=== PATIENT | male | born 1990 | race Caucasian/White ===

== ENCOUNTER 2024-10-12 17:57 | Emergency (ER) | payer OTHER, SELFPAY ==
--- NOTE | ~2024-10-12 | XR_ITS ---
CLINICAL HISTORY: cp Chest Radiographs, AP Comparison: None Findings: No cardiomegaly. Normal mediastinal contours. No pneumothorax. No opacity. No pleural effusion. Normal upper abdomen. No acute fracture. Impression: No acute findings. This document has been electronically signed by: Gracy Lilly MD on 10/12/2024 19:48:03
--- NOTE | 2024-10-12 18:05 | PC.NURSE ---
Pt. changed over into hospital attire and belongings secured per security officers. During changeover, a bottle of liquid Phenazolam was found and confiscated by security.
[2024-10-12 18:06] VITALS: BMI 21.0
[2024-10-12 18:08] VITALS: BP 134/78; PULSE 98; O2SAT 98
--- NOTE | 2024-10-12 18:20 | PC.NURSE ---
Pt.'s behaviors escalating, becoming increasingly aggressive and combative towards staff. Per Isela Newsome MD, order for 4-point restraints and IM medications ordered
[2024-10-12 18:24] VITALS: BP 97/56; PULSE 84; RESP 14; O2SAT 95
[2024-10-12] MEDS: LORazepam 2 MG/ML VIAL IM (18:24)
[2024-10-12] MEDS: diphenhydrAMINE HCL 50 MG/ML VIAL IM (18:24)
[2024-10-12] MEDS: Haloperidol Lactate 5 MG/ML VIAL IM (18:24)
--- NOTE | 2024-10-12 18:24 | PC.NURSE ---
Pt. on cardiac exercise specialist at this time
--- NOTE | 2024-10-12 18:32 | ECG_ITS ---
Test Reason : CHEST PAIN Blood Pressure : / mmHG Vent. Rate : 084 BPM Atrial Rate : 084 BPM P-R Int : 186 ms QRS Dur : 096 ms QT Int : 366 ms P-R-T Axes : 066 074 061 degrees QTc Int : 432 ms Normal sinus rhythm RSR' or QR pattern in V1 suggests right ventricular conduction delay Anterior infarct , age undetermined Abnormal ECG No previous ECGs available Referred By: Yoon Newsome Electronically Signed By:SARAH DAILY MD
--- NOTE | 2024-10-12 18:36 | ED.PSYCH ---
HPI - Psych General Chief Complaint: Psychiatric Symptoms Stated Complaint: INGESTED UNK SUBSTANCE, AMS, PD ON BOARD Time Seen by Provider: 10/12/24 18:14 History of Present Illness HPI Narrative: Patient is a 34-year-old male was found in a pizza parlor completely altered. Not acting himself. Might have taken some benzo. Patient unable to answer specific question staring into space trying to get a scan done not answering questions. Related Data Allergies Allergy/AdvReac Type Severity Reaction Status Date / Time No Known Allergies Allergy Verified 10/12/24 18:47 Review of Systems Review of Systems: Unable to obtain review of systems [facility] Past Medical History Attestation statement: The following information was validated with the patient. Social History Social History Advance Directives: No Advance Directives Information Provided: No Do you have a plan to hurt others: No Plan Physical Exam Vital Signs: Vital Signs: Last Vital Signs Temp 98.3 F 10/12/24 23:49 Pulse 67 10/12/24 23:49 Resp 14 10/12/24 23:49 BP 99/63 10/12/24 23:49 Pulse Ox 99 10/12/24 23:49 O2 Del Method Room Air 10/12/24 23:49 BMI result Body Mass Index 21.0 Appearance: Alert. Unable to respond to question Eyes: Pupils equal, round and reactive to light. ENT: Pharynx normal. Neck: Normal inspection. Neck supple. No lymph nodes noted. No crepitus CVS: Normal heart rate and rhythm. Pulses normal. Normal S1 and S2 Respiratory: No respiratory distress. Breath sounds normal. No Wheezing. No rales Abdomen: Soft and nontender. No rigidity. No distention. good BS x4 Skin: Skin warm and dry. Normal skin color. Normal skin turgor. Extremities: No lower extremity edema. Neurovascular intact to all extremities. No Lacerations. No Rash Neuro: Awake standing agitated No motor deficit. No sensory deficit. Moving all extermities. No verbal response Medications Administered Discontinued Medications Generic Name Dose Route Start Last Admin Trade Name Freq PRN Reason Stop Dose Admin Diphenhydramine HCl 50 mg 10/12/24 18:17 10/12/24 18:24 Diphenhydramine Hcl 50 Mg/Ml Vial IM 10/12/24 18:18 50 mg ONCE ONE Administration Haloperidol Lactate 5 mg 10/12/24 18:17 10/12/24 18:24 Haloperidol Lactate 5 Mg/Ml Vial IM 10/12/24 18:18 5 mg ONCE ONE Administration Sodium Chloride 1,000 mls @ 999 mls/hr 10/12/24 18:45 10/12/24 21:00 Ns IV 10/12/24 19:45 Infused .Q1H1M GERDA Infusion Lorazepam 2 mg 10/12/24 18:17 10/12/24 18:24 Lorazepam 2 Mg/Ml Vial IM 10/12/24 18:18 2 mg ONCE ONE Administration Medical Decision Making Medical Decision Making [facility] Narrative: Patient extremely agitated initially. Not following commands. We have to give him 5 of Haldol to Ativan 50 of Benadryl. Patient's family stated patient had use liquid benzo. Question horse tranquilizer. Patient was restrained initially. We quickly take the restraints off when patient became sleeping and more cooperative. Patient was monitored in the emergency department. Nursing staff spoke with family. Patient took a horse tranquilizer. In no distress. My interpretation of his EKG showed a sinus rhythm heart rate is 80 ND QRS QTC normal no acute ST segment elevation. Patient was removed from the restrained immediately after he became more calm and relaxed. Monitored overnight. Patient now becoming more awake alert at 01:00. Will discharge in morning if the progress continues. In no distress Differential Diagnosis Differential Diagnoses: The differential diagnosis associated with the presentation includes Polysubstance abuse Admission/Observation Consideration of admission/observation: Escalation of care including admission/observation considered Lab Data [facility] Lab Attestation statement: I reviewed the patient's lab results. 10/12/24 18:44 10/12/24 18:44 Labs: Lab Results 10/12/24 Range/Units 18:44 WBC 5.1 (4.8-10.8) X10*3/uL RBC 4.37 L (4.60-5.80) X10*6/uL Hgb 12.5 L (14.0-18.0) g/dl Hct 36.0 L (42.0-52.0) % MCV 82.4 (80.0-98.0) fL MCH 28.6 (27.0-33.0) pg MCHC 34.7 (31.0-36.0) g/dl RDW 12.8 (11.0-16.0) % Plt Count 184 (160-400) X10*3/uL MPV 9.9 (9.4-12.4) fL Immature Gran % (Auto) 0.2 (0.0-0.4) % Neut % (Auto) 75.1 H (45-73) % Lymph % (Auto) 18.0 L (20-40) % Petroleum % (Auto) 5.7 (2-11) % Eos % (Auto) 0.6 (0-4) % Baso % (Auto) 0.4 (0-2) % Lymph # (Auto) 0.9 L (1.2-4.9) X10*3/uL Petroleum # (Auto) 0.3 (0.1-1.2) X10*3/uL Eos # (Auto) 0.0 (0.0-0.4) X10*3/uL Baso # (Auto) 0.0 (0.0-0.2) X10*3/uL Abs Immat Gran (auto) 0.01 (0.00-0.03) X10*3/uL Absolute Neuts (auto) 3.8 (2.0-8.3) x10*3/uL Absolute Nucleated RBC 0.000 (0.0-0.012) X10*3/uL Nucleated RBC % (auto) 0.0 (0.0-0.2) /100WBC Sodium 146 H (135-145) mmol/L Potassium 3.2 L (3.3-5.1) mmol/L Chloride 110 H (96-108) mmol/L Carbon Dioxide 25 (22-29) mmol/L Anion Gap 14 (12-20) BUN 21 H (9-16) mg/dL Creatinine 0.85 (0.5-1.4) mg/dL Estim Creat Clear Calc 126.2 Estimated GFR > 60 Random Glucose 97 (60-115) mg/dL Calcium 9.4 (8.4-10.2) mg/dL Total Bilirubin 0.6 (0.0-1.0) mg/dL Direct Bilirubin 0.3 (0.0-0.5) mg/dL AST 45 H (5-37) U/L ALT 17 (0-40) U/L Alkaline Phosphatase 59 (39-117) U/L Troponin I High Sens < 2.7 (<3.5-35.0) ng/L Total Protein 7.9 (6.5-8.0) g/dL Albumin 5.0 (3.5-5.0) g/dL Salicylates < 5.0 L (15-30) mg/dL Acetaminophen < 3 (<30) mcg/mL Ethyl Alcohol < 10 mg/dL Independent Historian Clinical information obtained from an independent historian. History obtained from or confirmed by: EMS Discharge Plan Discharge Clinical Impression: Polysubstance abuse Patient Disposition: Still a Patient Instructions: Polysubstance Abuse (ED) Referrals: [facility] [Provider Group] - 10/15/24 Print Language: Moldovan
[2024-10-12 18:39] VITALS: BP 101/54; PULSE 86; RESP 12; O2SAT 93
--- NOTE | 2024-10-12 18:49 | PC.NURSE ---
Report given to Peter Frias RN
[2024-10-12 18:51] LABS: MANUAL DIFF FLAG NO
[2024-10-12 18:52] LABS: Basophils Percent Auto 0.4 % (0-2); Eosinophils Percent Auto 0.6 % (0-4); Hemoglobin 12.5 g/dl (14.0-18.0); Imm Gran Abs Auto 0.01 X10*3/uL (0.00-0.03); Imm Gran Pct Auto 0.2 % (0.0-0.4); Lymphocytes Absolute Auto 0.9 X10*3/uL (1.2-4.9); Mean Corpuscular HGB Conc 34.7 g/dl (31.0-36.0); Mean Corpuscular Hemoglobin 28.6 pg (27.0-33.0); Mean Corpuscular Volume 82.4 fL (80.0-98.0); Mean Platelet Volume 9.9 fL (9.4-12.4); Monocytes Absolute Auto 0.3 X10*3/uL (0.1-1.2); Monocytes Percent Auto 5.7 % (2-11); Neutrophils Absolute Auto 3.8 x10*3/uL (2.0-8.3); Neutrophils Percent Auto 75.1 % (45-73); Platelet Count 184 X10*3/uL (160-400); Red Blood Count 4.37 X10*6/uL (4.60-5.80); Red Cell Distribution Width 12.8 % (11.0-16.0); White Blood Count 5.1 X10*3/uL (4.8-10.8)
[2024-10-12 18:54] VITALS: BP 90/54; PULSE 77; RESP 12; O2SAT 94
[2024-10-12 19:08] LABS: Alanine Aminotransferase 17 U/L (0-40); Alkaline Phosphatase 59 U/L (39-117); Anion Gap 14 (12-20); Aspartate Amino Transferase 45 U/L (5-37); Bilirubin Direct 0.3 mg/dL (0.0-0.5); Bilirubin Total 0.6 mg/dL (0.0-1.0); Blood Urea Nitrogen 21 mg/dL (9-16); Calcium 9.4 mg/dL (8.4-10.2); Carbon Dioxide 25 mmol/L (22-29); Chloride 110 mmol/L (96-108); Creatinine Clr Calc Pharmacy 126.2; Estimated Glomerular Filt Rate > 60; Glucose Random 97 mg/dL (60-115); Potassium 3.2 mmol/L (3.3-5.1); Sodium 146 mmol/L (135-145); Total Protein 7.9 g/dL (6.5-8.0)
[2024-10-12 19:10] LABS: Acetaminophen LAB < 3 mcg/mL (<30); Ethanol < 10 mg/dL; Salicylate < 5.0 mg/dL (15-30)
[2024-10-12 19:17] LABS: Troponin-I High Sensitivity < 2.7 ng/L (<3.5-35.0)
[2024-10-12] MEDS: 0.9 % Sodium Chloride 1,000 ML 999 ML IV (19:30)
--- NOTE | 2024-10-12 20:30 | PC.NURSE ---
assumed care of pt 1914, pt at this time in 2 point restraints with BUE, restraints removed and skin/cms checked, pt awoke for short time, verbalized agreement for iv, calm/cooperative during placement approx 1929. ivf hung per dec. approx 1999 pts mother called to state she was concerned about pt being discharged before monday am and plan is to have him section 35 on Monday, requested message be relayed to , Newsome aware. 2023 pt requests for restraints to come off d/t being uncomfortable and wanting to lay on his side. verbalizes understanding behavioral criteria for release. restraints removed and pt laying comfortably in stretcher. 1:1 sitter at bedside. resp even and unlabored nad.
[2024-10-12 23:15] VITALS: BP 92/53; PULSE 68; RESP 16; O2SAT 97
[2024-10-12 23:49] VITALS: BP 99/63; PULSE 67; RESP 14; TEMP 36.8; O2SAT 99
--- NOTE | 2024-10-13 00:26 | PC.NURSE ---
pt awake, sat up in bed, requesting to leave but appears very sleepy still. redirected back into bed. pt requested curtain be closed a little more to block out light to see. curtain closed some but remains visible to nurses stations
--- NOTE | 2024-10-13 00:59 | PC.NURSE ---
pt sitting up on edge of bed, requesting something to drink water provided and placed on bedside table. pt now back in bed
[2024-10-13 02:19] VITALS: BP 96/56; PULSE 56; RESP 16; TEMP 36.5; O2SAT 96
[2024-10-13 03:53] VITALS: BP 92/54; PULSE 62; RESP 16; TEMP 36.6; O2SAT 96
--- NOTE | 2024-10-13 05:35 | PC.NURSE ---
pt awake and out of bed, appears more stead on his feet at this time. requesting to go home. pt redirected back into bed, sandwich and juice provided
[2024-10-13 06:14] VITALS: BP 109/79; PULSE 88; RESP 16; TEMP 37.2; O2SAT 97
[2024-10-13 08:54] LABS: Appearance Urine Clear; Color Urine Yellow; Glucose Urine UA Negative (Negative); Leukocyte Esterase Urine Negative (Negative); Nitrite Urine Negative (Negative); Specific Gravity - Urine 1.015 (1.005-1.025); Urine Blood Negative (Negative); Urine Ketones Trace mg/dL (Negative); Urine Protein Negative (Neg-Trace)
--- NOTE | 2024-10-13 08:57 | PC.NURSE ---
this RN resumed care of pt at 0645. pt alert and oriented to self only. pt disoriented to time, place, and why he presents to the ED today. pt reoriented to all questions but forgets this development writer's response fairly quickly. vss and up to date. nsr on the stone carriage operator. pt remains calm/cooperative at this time. has no complaints/denies pain. independent w/o use of assistive devices while ambulating to the bathroom - urine obtained/sent to lab. pt remains a section 12. pending care team consult. 1:1 sitter bedside. plan of care ongoing. call rowe placed within reach.
[2024-10-13 09:00] LABS: Bacteria Urine None Seen (None Seen); Hyaline Casts Urine 0-2 /LPF (0-2); RBC Urine 0-2 /HPF (0-2); Squamous Epithelial Cell Urine 0-2 /HPF (0-2); WBC Urine 0-5 /HPF (0-5)
[2024-10-13 09:07] LABS: Amphetamine Screen Urine Not Detected (Not Detect); Barbiturates, Urine Not Detected (Not Detect); Benzodiazepines Screen Urine POSITIVE (Not Detect); Buprenorphine Scr Positive (Not Detect); Cannabinoid Screen Urine Not Detected (Not Detect); Cocaine Screen Urine Not Detected (Not Detect); Fentanyl, urine Not Detected (Not Detect); Methadone Screen, Urine Not Detected (Not Detect); Opiate Screen Urine Not Detected (Not Detect); Oxycodone Screen Urine Not Detected (Not Detect); Phencyclidine Screen Urine Not Detected (Not Detect)
[2024-10-13 10:11] VITALS: BP 117/63; PULSE 69; RESP 18; TEMP 36.4; O2SAT 99
[2024-10-13] MEDS: LORazepam 1 MG TABLET PO (11:06)
--- NOTE | 2024-10-13 11:14 | PC.NURSE ---
pt remains altered/unaware of situation and what presents him to the ED today. pt seemingly sluggish. attempted to reorient pt but pt continuously declines accusations that were stated on section 12. pt states, i don't have an ex and i don't know anyone from [place]. i never said any of those things and i don't do drugs. situation deescalated by RN and tech. pt willingly took PO medication in attempts to relax pt while pending care team consult. medication administered per provider order. effectiveness pending. lights dimmed to promote comfort. 1:1 sitter remains present. plan of care ongoing.
--- NOTE | 2024-10-13 15:18 | PC.NURSE ---
report given to VANDANA Dubose in the pod at this time. pt transported to pod w/ this RN as well as security.
[2024-10-13 17:26] VITALS: BP 112/75; PULSE 98; RESP 13; TEMP 36.7; O2SAT 98
--- NOTE | 2024-10-13 20:49 | PC.NURSE ---
patient calm and cooperative but restless at time. patient frequently at phone trying to make phone calls but mother and father requested phone be taken from him to stop calling them, he has been repetative in trying to get them to discharge him and states im all set and discharged come get me . pt attempted to call a friend as well to get pickup and told him he was at [facility]. phone turned off at this time not allowing calls.
[2024-10-14 00:38] VITALS: BP 122/69; PULSE 75; RESP 18; TEMP 37.1; O2SAT 96
--- NOTE | 2024-10-14 07:59 | PC.NURSE ---
Assumed care of patient at 0645, patient appears to be in no apparent distress this am, calm and cooperative, offering no complaints to this RN at this time. Continue plan of care for inpatient bedsearch
--- NOTE | 2024-10-14 11:38 | PHA.MEDREC ---
Addendum entered by Nancy Young RPh 10/14/24 11:47: Reviewed by pharmacist Original Note: Pharmacy Consult ? Medication Reconciliation Pharmacy has reviewed the medication reconciliation done by nursing.
--- NOTE | 2024-10-14 12:13 | MHC.CARE ---
Pt does not meet the criteria for IPLOC and will be discharged as his mother had a Section 35 approved through the [facility]. Pt will be picked up by PD on the Section 35 warrant once discharged. Pt denies SI, HI, and A/V/H. Provider in agreement with disposition.
[2024-10-14 13:08] VITALS: BP 118/78; PULSE 89; RESP 14; TEMP 36.4; O2SAT 97
== END 2024-10-14 13:17 | disposition home or self-care (01) ==
PROVIDERS: Emergency Medicine Emergency Medical Services; Emergency Provider Emergency Medicine Emergency Medical Services
DX: F19.10 Other psychoactive substance abuse, uncomplicated (principal); R45.1 Restlessness and agitation
CPT/HCPCS: 36415; 71045; 80048; 80076; 80143; 80179; 80307; 81001; 84484; 85025; 93005; 96360; 96361; 96372; 99285; J1200; J1630; J2060; S9485

== ENCOUNTER → 2024-10-12 18:32 | Outpatient (BNV) | payer OTHER, SELFPAY | PROVIDERS: Emergency Provider Emergency Medicine Emergency Medical Services; Visit Provider Internal Medicine Cardiovascular Disease | DX: R07.9 Chest pain, unspecified (principal); R94.31 Abnormal electrocardiogram [ECG] [EKG] | CPT/HCPCS: 93010 ==

== ENCOUNTER → 2024-10-12 18:32 | Outpatient (BNV) | payer SELFPAY | PROVIDERS: Emergency Provider Emergency Medicine Emergency Medical Services; Visit Provider Radiology Diagnostic Radiology | DX: R07.9 Chest pain, unspecified (principal) | CPT/HCPCS: 71045 ==

== ENCOUNTER 2025-03-04 22:39 | Emergency (ER) | payer OTHER, SELFPAY ==
--- NOTE | 2025-03-04 | ECG_ITS ---
Test Reason : OVERDOSE Blood Pressure : */* mmHG Vent. Rate : 85 BPM Atrial Rate : 85 BPM P-R Int : 212 ms QRS Dur : 96 ms QT Int : 356 ms P-R-T Axes : 46 54 42 degrees QTcB Int : 423 ms Sinus rhythm with 1st degree A-V block Otherwise normal ECG When compared with ECG of 12-Oct-2024 18:43, Criteria for Anterior infarct are no longer Present Referred By: Generic ED Physician Electronically Signed By: SARAH DAILY MD
[2025-03-04 22:52] VITALS: BP 106/65; BP 142/80; PULSE 89; PULSE 96; RESP 12; TEMP 37.1; O2SAT 94; O2SAT 96; BMI 20.3
[2025-03-04 23:05] VITALS: BP 100/58; PULSE 85; RESP 14; TEMP 37.1; O2SAT 92
[2025-03-04 23:08] LABS: MANUAL DIFF FLAG NO
[2025-03-04 23:09] LABS: Basophils Percent Auto 0.3 % (0-2); Eosinophils Absolute Auto 0.1 X10*3/uL (0.0-0.4); Hematocrit 34.7 % (42.0-52.0); Hemoglobin 11.8 g/dl (14.0-18.0); Imm Gran Abs Auto 0.02 X10*3/uL (0.00-0.03); Imm Gran Pct Auto 0.3 % (0.0-0.4); Lymphocytes Absolute Auto 1.3 X10*3/uL (1.2-4.9); Lymphocytes Percent Auto 22.4 % (20-40); Mean Corpuscular Hemoglobin 28.3 pg (27.0-33.0); Mean Corpuscular Volume 83.2 fL (80.0-98.0); Mean Platelet Volume 10.5 fL (9.4-12.4); Monocytes Absolute Auto 0.4 X10*3/uL (0.1-1.2); Monocytes Percent Auto 6.3 % (2-11); Neutrophils Absolute Auto 4.1 x10*3/uL (2.0-8.3); Neutrophils Percent Auto 69.7 % (45-73); Platelet Count 186 X10*3/uL (160-400); Red Blood Count 4.17 X10*6/uL (4.60-5.80); Red Cell Distribution Width 12.7 % (11.0-16.0); White Blood Count 5.8 X10*3/uL (4.8-10.8)
--- NOTE | 2025-03-04 23:12 | PC.NURSE ---
Pt brought in by ambulance minimally responsive. Pt arousable to name and shaking. O2 sat on room air went down to 89%, pt placed on 2LNC and O2 sat up to 93-94%.
[2025-03-04 23:27] LABS: Alanine Aminotransferase 26 U/L (0-40); Albumin Level 4.5 g/dL (3.5-5.0); Alkaline Phosphatase 56 U/L (39-117); Anion Gap 12 (12-20); Aspartate Amino Transferase 59 U/L (5-37); Bilirubin Total 0.5 mg/dL (0.0-1.0); Blood Urea Nitrogen 11 mg/dL (9-16); Calcium 9.2 mg/dL (8.4-10.2); Carbon Dioxide 27 mmol/L (22-29); Chloride 109 mmol/L (96-108); Creatinine Clr Calc Pharmacy 136.6; Estimated Glomerular Filt Rate > 60; Ethanol < 10 mg/dL; Glucose Random 87 mg/dL (60-115); Potassium 4.1 mmol/L (3.3-5.1); Sodium 144 mmol/L (135-145)
[2025-03-04 23:36] LABS: Troponin-I High Sensitivity < 2.7 ng/L (<3.5-35.0)
[2025-03-04 23:47] VITALS: BP 105/60; PULSE 78; RESP 11; O2SAT 96
--- NOTE | 2025-03-04 23:58 | PC.NURSE ---
[facility]
--- NOTE | 2025-03-05 01:04 | PC.NURSE ---
Patient awake requesting natividad dolores and crackers, provided and tolerated well. Patient alert to self, calm, cooperative, denies any pain at present. Patient denies SI/HI, warm blanket given to patient, call rowe placed within patient's reach and patient instructed in use.
--- NOTE | 2025-03-05 01:12 | PC.NURSE ---
Patient self removed c-collar and refusing to apply it back on. Patient denies c-spine tenderness. ED provider Jessica notified.
[2025-03-05 02:10] VITALS: BP 101/52; PULSE 75; RESP 16; TEMP 36.9; O2SAT 96
--- NOTE | 2025-03-05 03:48 | ED_ITS ---
HPI - Overdose General Chief Complaint: Overdose Stated Complaint: 2 bags of heroine overdose Time Seen by Provider: 03/05/25 03:48 Source: patient Mode of arrival: EMS Limitations: no limitations History of Present Illness ED Provider: Dr. Herbert Zarco HPI Narrative: 34-year-old male with a history of polysubstance use disorder who was found unresponsive on the street. The patient was given intranasal Narcan 4 [address] and then 2 mg by EMS and the patient became more arousable. He did admit to using 1-2 bags of heroin. At the time my evaluation, the patient had no complaints. He told me that he just got out of an IOP recovery detox program on Monday02/28/2025 (5 days prior). He states that he does not want to get back into a treatment program. He denied being suicidal or homicidal. Related Data Home Medications ?Medication ?Instructions ?Recorded ?Confirmed No Known Home Meds 10/14/24 10/14/24 Allergies Allergy/AdvReac Type Severity Reaction Status Date / Time No Known Allergies Allergy Verified 03/04/25 22:57 Review of Systems 2 Review of Systems: Yes all other systems are reviewed and are negative [facility] Past Medical History [facility] Narrative: Social history: He does smoke cigarettes. He denies alcohol use. He states he smokes heroin Social History Social History Unable to assess alcohol history related to: Unknown Advance Directives: No Advance Directives Information Provided: No Physical Exam 2 Vital Signs: Vital Signs: Last Vital Signs Temp 97.8 F 03/05/25 05:37 Pulse 74 03/05/25 05:37 Resp 16 03/05/25 05:37 BP 95/49 L 03/05/25 05:37 Pulse Ox 96 03/05/25 05:37 O2 Del Method Room Air 03/05/25 05:37 BMI result Body Mass Index 20.3 Vital signs were normal Exam: General: Awake, alert in no distress Head: Normocephalic, atraumatic EENT: PERRL, Lids normal, sclera normal, conjunctiva normal, nose normal , ears normal, throat without erythema or exudates Neck: Supple, no adenopathy Lung: breath sounds symmetric, no wheezing, rales or rhonchi Chest: symmetric movement, nontender Heart: regular rate and rhythm, normal S1, S2 no murmurs or rubs Abdomen: soft, non-tender, nondistended, normal bowel sounds Back: no vertebral tenderness, no CVAT Extremities: no deformities, moves all extremities symmetrically Neuro: Awake, alert, oriented, normal speech, cranial nerves intact, moves all extremities symmetrically Psych: Pleasant, cooperative Medications Administered Discontinued Medications Generic Name Dose Route Start Last Admin Trade Name Janes PRN Reason Stop Dose Admin Lactated Ringer's 1,000 mls @ 999 mls/hr 03/05/25 03:53 03/05/25 05:30 Lr IV 03/05/25 04:53 Infused .Q1H1M STA Infusion Medical Decision Making Medical Decision Making [facility] Narrative: 34-year-old male with a history of polysubstance use disorder who was found unresponsive on the street. The patient was given intranasal Narcan [address] and then 2 mg by EMS and the patient became more arousable. He did admit to using 1-2 bags of heroin. At the time my evaluation, the patient had no complaints. He told me that he just got out of an [facility] recovery detox program on Monday02/28/2025 (5 days prior). He states that he does not want to get back into a treatment program. He denied being suicidal or homicidal. Vital signs were normal. Examination was unremarkable Differential diagnosis: ?Includes but is not limited to heroin overdose, benzodiazepine overdose, anemia, electrolyte abnormalities Course: My independent interpretation patient's laboratory evaluation is as follows: Normocytic anemia with an H&H of 11.8 and 34.7-chronic. BNP revealed an elevated chloride of 109. Elevated AST of 59. Troponin was below detectable limits. Ethanol level was below detectable limits. Patient's 12 EKG was unremarkable. The patient was observed in the emergency department for 7 hours and during this time he remained awake and alert. The patient was eating ate crackers and drink natividad dolores without any difficulty. Stated above he denied suicidal or homicidal ideation. He is not interested in getting into a another detox program or talking to the recovery team and would like to go home. Patient was discharged home with printed and verbal instructions. He was also given in intranasal Narcan dispense pack. Admission/Observation Consideration of admission/observation: Escalation of care including admission/observation considered (Yes) Lab Data [facility] Lab Attestation statement: I reviewed the patient's lab results. 03/04/25 23:04 03/04/25 23:04 Labs: Lab Results 03/04/25 03/04/25 Range/Units 23:04 23:10 WBC 5.8 (4.8-10.8) X10*3/uL RBC 4.17 L (4.60-5.80) X10*6/uL Hgb 11.8 L (14.0-18.0) g/dl Hct 34.7 L (42.0-52.0) % MCV 83.2 (80.0-98.0) fL MCH 28.3 (27.0-33.0) pg MCHC 34.0 (31.0-36.0) g/dl RDW 12.7 (11.0-16.0) % Plt Count 186 (160-400) X10*3/uL MPV 10.5 (9.4-12.4) fL Immature Gran % (Auto) 0.3 (0.0-0.4) % Neut % (Auto) 69.7 (45-73) % Lymph % (Auto) 22.4 (20-40) % Metcalfe % (Auto) 6.3 (2-11) % Eos % (Auto) 1.0 (0-4) % Baso % (Auto) 0.3 (0-2) % Lymph # (Auto) 1.3 (1.2-4.9) X10*3/uL Metcalfe # (Auto) 0.4 (0.1-1.2) X10*3/uL Eos # (Auto) 0.1 (0.0-0.4) X10*3/uL Baso # (Auto) 0.0 (0.0-0.2) X10*3/uL Abs Immat Gran (auto) 0.02 (0.00-0.03) X10*3/uL Absolute Neuts (auto) 4.1 (2.0-8.3) x10*3/uL Absolute Nucleated RBC 0.000 (0.0-0.012) X10*3/uL Nucleated RBC % (auto) 0.0 (0.0-0.2) /100WBC Sodium 144 (135-145) mmol/L Potassium 4.1 D (3.3-5.1) mmol/L Chloride 109 H (96-108) mmol/L Carbon Dioxide 27 (22-29) mmol/L Anion Gap 12 (12-20) BUN 11 (9-16) mg/dL Creatinine 0.74 (0.5-1.4) mg/dL Estim Creat Clear Calc 136.6 Estimated GFR > 60 Random Glucose 87 (60-115) mg/dL Calcium 9.2 (8.4-10.2) mg/dL Total Bilirubin 0.5 (0.0-1.0) mg/dL AST 59 H (5-37) U/L ALT 26 (0-40) U/L Alkaline Phosphatase 56 (39-117) U/L Troponin I High Sens < 2.7 (<3.5-35.0) ng/L Total Protein 7.0 (6.5-8.0) g/dL Albumin 4.5 (3.5-5.0) g/dL Ethyl Alcohol < 10 mg/dL Independent Interpretation I performed an independent interpretation of an: EKG Interpretation: My independent interpretation patient's 12 EKG done on 03/04/2025 at 23:03 hours is as follows: Sinus rhythm with a rate of 85, prolonged QRS interval of 212 milliseconds consistent with a first-degree AV block, QRS duration was normal, QTC interval was normal, no ST segment elevation, no ST segment depression, no significant T-wave abnormalities, R SR V1. Compared to an EKG dated 10/12/2024 at 18:43 hours there are no significant changes. Chronic Conditions Patient?s care impacted by: Other (Polysubstance use disorder) Discharge Plan Discharge Clinical Impression: Accidental drug overdose Qualifiers: Encounter type: initial encounter Qualified Code(s): T50.901A - Poisoning by unspecified drugs, medicaments and biological substances, accidental (unintentional), initial encounter Patient Disposition: Home, Self-Care Instructions: Adult Overdose (ED) Additional Instructions: You were found unresponsive in the street. First responders gave you intranasal Narcan which woke you up suggesting that you had an overdose from either heroin or fentanyl. At this time, you do not want to talk to our recovery team but if you change your mind you can come back to the emergency department or follow-up with our comprehensive care clinic. Your are being discharged home with intranasal Narcan. If you are going to continue to use heroin, you should make sure that there is a sober person with you that is not using drugs and that this person can administer intranasal Narcan in the event that you stop breathing. Follow-up with your doctor in 2 days. Please return to the emergency department if your symptoms get worse or if you develop any symptoms that are concerning to you. Overdose You were seen in our Emergency Department for an overdose today. You received narcan in order to reverse the effects of overdose. Narcan only lasts about 45 min to 1 hour in the system. You may have been given narcan to take home with you today, please keep it near you if you are going to use again, so others can use it if needed.? The number one risk for fatal overdose is using alone? [employer] is a 01/05 hotline where you can be on the phone with someone while you use, and they can call for help if they suspect an overdose: [phone] Things to look out for when you leave include severe vomiting or diarrhea, headaches, muscle cramps, fever, coughing, chest pain, or if you feel so short of breath you cannot walk to the bathroom. Please seek care and return any time for worsening symptoms.? You may have been provided with safer injection?items, please take time to take care of YOU and your health. Use new supplies whenever possible to lessen the chances of infections and other illnesses.? If you need more supplies, please go [facility],? [address] [place] [address] OR you can call or text to coordinate delivery of safer supplies. If you decide you want to stop or cut down on how much you?re using, please call the numbers on the list provided to you or you can come to our outpatient Addiction Treatment office [facility] (M-F 9am-5p) [address] [facility], [address] [place] [address]. [phone] Prescriptions: No Action No Known Home Meds Print Language: Dominican
[2025-03-05] MEDS: Lactated Ringers 1,000 ML 999 ML IV (03:57)
--- NOTE | 2025-03-05 05:31 | PC.NURSE ---
Pt awoke and removed IV Line when IVF were only half way infused. Physician notified.
[2025-03-05 05:37] VITALS: BP 95/49; PULSE 74; RESP 16; TEMP 36.6; O2SAT 96
[2025-03-05 06:14] VITALS: BP 97/64; PULSE 91; RESP 16; TEMP 36.6; O2SAT 98
[2025-03-05] MEDS: Naloxone HCl Nasal TAKE HOME 4 MG SPRAY 8 MG NOSTRILALT (06:16)
== END 2025-03-05 07:15 | disposition home or self-care (01) ==
PROVIDERS: Emergency Provider Emergency Medicine Emergency Medical Services; PCP Internal Medicine
DX: T40.1X1A Poisoning by heroin, accidental (unintentional), initial encounter (principal); R40.4 Transient alteration of awareness; Y92.414 Local residential or business street as the place of occurrence of the external cause
CPT/HCPCS: 36415; 80053; 80307; 84484; 85025; 93005; 96360; 96361; 99284; 99285; J7120

== ENCOUNTER → 2025-03-04 23:03 | Outpatient (BNV) | payer OTHER, SELFPAY | PROVIDERS: Emergency Provider Emergency Medicine Emergency Medical Services; PCP Internal Medicine; Visit Provider Internal Medicine Cardiovascular Disease | DX: I44.0 Atrioventricular block, first degree (principal) | CPT/HCPCS: 93010 ==

== ENCOUNTER 2025-03-05 08:48 | Emergency (ER) | payer OTHER, SELFPAY ==
--- NOTE | 2025-03-05 08:55 | ED_ITS ---
HPI - General Adult General Chief complaint: Fall Stated complaint: crisis Time Seen by Provider: 03/05/25 08:54 Source: patient Mode of arrival: ambulatory Limitations: no limitations History of Present Illness ED Provider: Rosemarie Valdez PA-C HPI narrative: Patient is a 34 year old assigned male at with a history of substance use presenting to the emergency department today after a fall. Patient states that he was resting in the waiting room when he fell forward. Patient states that he has no complaints. Patient denies any dizziness, lightheadedness, abdominal pain, nausea, vomiting, fever, chills, blurry vision, double vision, loss of vision, chest pain, difficulty breathing, shortness of breath, back pain, night sweats, pain with urination, increased urinary frequency, increased urinary urgency, blood in his urine or stool, syncope or a near syncopal episode, bowel incontinence, bladder incontinence, or any other complaints at this time. Patient states that he did not want to check in but he was told he had to and he would like to leave to go home. Relieving factors: none Exacerbating factors: none Associated symptoms: denies other symptoms Related Data Home Medications ?Medication ?Instructions ?Recorded ?Confirmed No Known Home Meds 10/14/24 10/14/24 Allergies Allergy/AdvReac Type Severity Reaction Status Date / Time No Known Allergies Allergy Verified 03/05/25 09:04 Review of Systems Constitutional: Constitutional: Reports no additional constitutional complaints, Denies chills, Denies fever(s) and Denies night sweats Eyes: Eyes: Reports no additional eye complaints, Denies blurry vision, Denies change in vision, Denies diplopia, Denies eye discharge, Denies loss of vision and Denies eye pain ENT: Denies dizziness Cardiovascular: Cardiovascular: Reports no additional cardiovascular complaints, Denies chest pain, Denies lightheadedness, Denies Loss of Consciousness and Denies dyspnea Respiratory: Respiratory: Reports no additional respiratory complaints and Denies dyspnea Gastrointestinal: Gastrointestinal: Reports no additional gastrointestinal complaints, Denies abdominal pain, Denies melena, Denies hematochezia, Denies change in bowel habits and Denies change in stool character Genitourinary: Genitourinary: Reports no additional male genitourinary complaints, Denies hematuria, Denies oliguria, Denies difficulty urinating, Denies dysuria, Denies urinary frequency, Denies urinary hesitancy, Denies urinary incontinence and Denies urinary urgency Musculoskeletal: Musculoskeletal: Reports no additional musculoskeletal complaints, Denies numbness and Denies tingling Neurologic: Denies dizziness, Denies loss of vision, Denies numbness and Denies tingling Psychiatric: Psychiatric: Reports no additional psychiatric complaints Endocrine: Endocrine: Reports no additional endocrine complaints Hematologic/Lymphatic: Hematologic/Lymphatic: Reports no additional hematologic/lymphatic complaints Allergic/Immunologic: Allergic/Immunologic: Reports no additional allergic/immunologic complaints PMFSH Past Medical History Attestation statement: The following information was validated with the patient. Source: old records reviewed and nursing notes reviewed Social History Social History Unable to assess alcohol history related to: Unknown Advance Directives: No Advance Directives Information Provided: No Do you have a plan to hurt others: No Plan Physical Exam ED Vital Signs: Vital Signs - 24 hr 03/05/25 09:00 03/05/25 09:23 Temperature 97.5 F 97.5 F Pulse Rate 67 67 Respiratory Rate 18 18 Blood Pressure 106/69 106/69 Pulse Oximetry 99 99 Oxygen Delivery Method Room Air Room Air BMI result Body Mass Index 25.2 Const General: cooperative, no acute distress, alert and awake Nutritional Appearance: well nourished Orientation/consciousness: patient oriented x3 HENMT Head: Yes normal to inspection and Yes atraumatic Ears: hearing grossly normal bilaterally and external ears normal General nose exam: Normal external nose present, no nasal discharge noted and no epistaxis Face and sinus: Yes normal facial exam, No abrasion and No laceration Mouth: Normal oral and palatal mucosa present, no drooling and no muffled voice Eyes General: appearance normal, both eyes and all related structures Periorbital: periorbital findings normal Eyelids: Yes eyelids normal Conjunctivae: conjunctivae normal Pupils: Equal, round and reactive pupils present EOM: EOMs intact bilaterally Neck Neck: Yes normal visual inspection, Yes full ROM and Yes no lymphadenopathy Resp Effort & Inspection: normal respiratory effort and able to speak in complete sentences Neuro General: patient oriented x3, moves all extremities and CN's II-XI intact bilaterally Cranial nerves: Yes Equal, round and reactive pupils present Cognition (Neuro): normal cognition Extrem General: Yes normal to inspection, Yes full ROM and Yes capillary refill normal Psych Appearance: grossly normal Mental Status: mental status grossly normal Affect: normal affect Attitude: cooperative Thought process: Normal thought process present Thought content: Normal thought content present Insight: Good insight present (Psych) Medical Decision Making Medical Decision Making MDM Narrative: Patient is a 34 year old assigned male at with a history of substance use presenting to the emergency department today after a fall. Patient's physical exam was unremarkable. Patient is alert and oriented, steady on his feet, and appropriate for discharge given he has no complaints and he is requesting to leave. I explained my physical exam findings to the patient. I answered all questions asked by the patient. I stressed the importance of the patient taking his medication as directed (either prescribed or as the over the counter packagi ng recommends). I stressed the importance of the patient following up with his primary care provider. I stressed the importance of the patient returning to the emergency department immediately if his symptoms were to worsen or if he were to develop any dizziness, shortness of breath, difficulty breathing, chest pain, blurry vision, loss of vision, nausea, vomiting, abdominal pain, fever, chills, back pain, or any other complaints. Patient verbalized agreement and understanding with this treatment plan and discharge. Differential Diagnosis Differential Diagnoses: The differential diagnosis associated with the presentation includes Fall Admission/Observation Consideration of admission/observation: Escalation of care including admission/observation considered Patient would have been admitted to the hospital had his clinical presentation warranted hospital admission. Discharge Plan Discharge Clinical Impression: Fall Patient Disposition: Home, Self-Care Instructions: Fall Prevention (ED) Additional Instructions: Follow up with your primary care provider. Return to the emergency department immediately if your symptoms worsen or if you develop any numbness, tingling, dizziness, shortness of breath, difficulty breathing, chest pain, blurry vision, loss of vision, nausea, vomiting, abdominal pain, fever, chills, back pain, or any other complaints. Please see the information below about our Patient Portal. If you are not yet enrolled in the [facility] Patient Portal, you will receive an enrollment email invitation following your visit to any [facility] care setting. You may also self-enroll in the Patient Portal by visiting our website: [email or web address] The following information is required to access the Patient Portal: - Your [facility] Medical Record Number - Your personal home email address (must match what is in your electronic medical record, Registration staff can assist with this) - Name - Date of Capabilities of the Patient Portal: - Message some providers - View upcoming appointments - Access your health summary, medical history, and visit history - View current conditions and allergies - View procedure and lab results - View your medications, including guidelines, side effects, and precautions - Complete pre-appointment questionnaires requested by your provider - Ready summary reports of your office visits and procedures To access the Patient Portal Mobile [employer], follow these directions: - Search [employer] in the [employer] Store or [employer] Store - Download the Teja - Search for [facility] - Enter your login/password Prescriptions: No Action No Known Home Meds Referrals: Terell Argueta MD [Primary Care Provider] - Interventions: ED Discharge Assessment Last Done: 03/05/25 09:23 Discharge Date/Time: 03/05/25 09:25 Print Language: Montenegrin
[2025-03-05 09:00] VITALS: BP 106/69; PULSE 67; RESP 18; TEMP 36.4; O2SAT 99; BMI 25.2
--- NOTE | 2025-03-05 09:06 | PC.NURSE ---
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 provider notified
[2025-03-05 09:23] VITALS: BP 106/69; PULSE 67; RESP 18; TEMP 36.4; O2SAT 99
--- NOTE | 2025-03-05 09:23 | PC.NURSE ---
provider discharged patient with help of intern brand and security
== END 2025-03-05 09:25 | disposition home or self-care (01) ==
PROVIDERS: Emergency Provider Emergency Medicine; PCP Internal Medicine
DX: Z04.3 Encounter for examination and observation following other accident (principal); F19.10 Other psychoactive substance abuse, uncomplicated
CPT/HCPCS: 99282